=== PATIENT | female | born 1980 | race Two or more races ===

== ENCOUNTER → 2024-07-31 | Outpatient (CLI) | payer MEDICAID, SELFPAY ==
--- NOTE | 2024-07-31 09:30 | XR_ITS ---
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
== END | disposition home or self-care (01) ==
LOC: CDIM 09:20
PROVIDERS: PCP Physician Assistant; Referring Provider Physician Assistant; Visit Provider Physician Assistant
DX: K21.9 Gastro-esophageal reflux disease without esophagitis (principal)
CPT/HCPCS: 74240; Z7610